=== PATIENT | female | born 1945 | race Caucasian/White ===

== ENCOUNTER 2018-06-10 05:46 | Inpatient (IN) | payer OTHER ==
[~2018-06-10] VITALS: Ht 152.4 cm; Wt 65.8 kg
[2018-06-10 05:48] VITALS: BP 144/61
[2018-06-10] MEDS ORDERED: ASPIRIN325 PO (06:03)
[2018-06-10] MEDS ORDERED: ZYRTEC10 M4 PO (06:04)
[2018-06-10] MEDS ORDERED: TRAZODONE HCL50 MG PO (06:04)
[2018-06-10] MEDS ORDERED: PROPRANOLOL 1010 MG PO (06:07)
[2018-06-10] MEDS ORDERED: SYNTHROID75 MCG PO (06:07)
[2018-06-10] MEDS ORDERED: PROZAC20 MG PO (06:08)
[2018-06-10] MEDS ORDERED: CLARITIN10 MG PO (06:08)
[2018-06-10] MEDS ORDERED: HYDROCODON-ACE1 EA12 PO (06:09)
[2018-06-10 06:14] LABS: HEMATOCRIT 30.9 % (37.0-47.0); HEMOGLOBIN 10.4 gm/dL (12.0-15.0); MCHC 33.7 g/dL (28.0-37.0); MCV 88.8 fL (80.0-100.0); RBC 3.48 mil/uL (4.20-5.00); WBC 7.8 thou/uL (4.0-11.0)
[2018-06-10 06:17] LABS: CALCIUM 9.2 mg/dL (8.5-10.1); CREATININE 0.6 mg/dL (0.6-1.0); POTASSIUM 3.8 mmol/L (3.5-5.1)
[2018-06-10 06:23] LABS: ALBUMIN 3.3 g/dL (3.4-5.0); TOTAL BILIRUBIN 0.5 mg/dL (<0.1-1.0); TOTAL PROTEIN 7.2 g/dL (6.4-8.2)
[2018-06-10 06:47] LABS: URINE CLARITY CLEAR; URINE COLOR YELLOW
[2018-06-10 06:48] LABS: URINE BILIRUBIN NEGATIVE (Negative); URINE BLOOD NEGATIVE (Negative); URINE GLUCOSE-RANDOM* NEGATIVE (Negative); URINE KETONES NEGATIVE (Negative); URINE LEUKOCYTES-REFLEX NEGATIVE (Negative); URINE NITRITE-REFLEX NEGATIVE (Negative); URINE PROTEIN (DIPSTICK) NEGATIVE (Negative); URINE UROBILINOGEN 0.2 E.U./dl (0.2-1.0)
[2018-06-10 09:09] VITALS: BP 125/54
[2018-06-10 09:59] VITALS: BP 141/76
[2018-06-10 10:32] VITALS: BP 124/53
--- NOTE | 2018-06-10 18:36 | NUR ---
ASSUMED CARE AT 1700, PATIENT CAME DOWN FROM 4E 423. REPORTS PAIN IS UNDER CONTROL. UP WITH 1 PERSON ASSIST WITH A WALKER. WALKED AROUND THE UNIT 1 TIME. MEDS GIVEN PER SCHEDULE. WILL CONTINUE TO ASSESS AND ASSIST WITH ADLs NEEDED.
--- NOTE | 2018-06-11 04:37 | NUR ---
PATIENT ALERT AND ORIENTED X4. UP WITH ONE ASSIST AND WALKER TO BATHROOM THROUGHOUT THE NIGHT. NPO SINCE [place] FOR MRI TODAY. SL TO RIGHT AC PATENT FOR FLUSH. MEDICATED FOR PAIN X1 AT TIME OF NOTE WITH RELIEF. RESTING QUIETLY AT TIME OF NOTE. WILL MONITOR.
[2018-06-11 07:55] VITALS: BP 123/65
--- NOTE | 2018-06-11 16:35 | NUR ---
dp faxed initial skilled referral to [facility], katelyn/admissions at facility is aware of incoming referral.
--- NOTE | 2018-06-11 16:36 | NUR ---
INITIAL ASSESSMENT: Received consult for discharge planning. MILY reviewed chart and spoke with nursing and attending physician. Pt was admitted from home due to intractable lower back pain. Pt had MRI of lumbar spine earlier today. Pt with L4-L5 disc bulge. Pt with hx of recent right KRISTIN. PT/OT evaluated pt. SW met with pt at bedside. Introduced role of SW. Pt is alert/orientated x 4. Pt reports she lives at home alone in her apt. Pt has 3 steps to enter her apt. There are 14 steps down to her basement. Pt's laundry and cat's litter box are down in the basement. Pt had recent righ KRISTIN at the [facility] on 05/[address] Timothy Reynoso. Pt was discharged home on 05/30 with orders for outpatient thearpy. Pt states she has gone to 2 outpatient therapy sessions prior to admission. Pt states she fell at home and has had extreme lower back pain. Pt went to the ER at [facility] several days prior to admission and was sent home. Pt states she is unable to return home alone at this time, and is interested in going to post-acute rehab. Lengthy discussion with pt regarding discharge disposition. SW discussed acute rehab v. SNF. SW provided pt with list of SNFs. Pt requests referral to be sent to [facility]. Pt would prefer SNF v. inpt acute rehab. Pt's sister has been to [facility] and [facility], so she is familiar with these two facilities if needed. Pt's PCP is Dr. Talia Lee at [facility]. personal financial planner faxed referral to [facility]. MILY notified and discussed case with [facility] liaison. SW is following to assist as needed with discharge planning.
--- NOTE | 2018-06-11 19:37 | NUR ---
ASSUMED CARE OF PATIENT AT 0715, PATIENT ALERT AND ORIENTED X 4. PATIENT UP WIH ASSIST X 1 WITH WALKER. PATIENT C/O PAIN WITH LOW BACK, 07/01, PATIENT REFUSED PAIN MEDICATION THIS SHIFT, WILL TAKE LATER ON THE NIGHTSHIFT. PAULINA HAS A RIGHT AC IV IN PLACE, FLUSHED WITH NS AND REMAINS PATENT. PAULINA NEW ORDER FOR LIDOCAINE PATCHE APPLIED TO RIGHT LOW BACK. THIS RN NOTIFIED DR FRANCO OF PATIENT WANTING TO TAKE PROZAC AND LEVOTHYROXINE TODAY INSTEAD OF STARTING TOMORROW, OK WITH DR FRANCO. PASSED ON TO THE NIGHTSHIFT THAT PATIENT WANTS PROZAC 60 MG INSTEAD OF 20MG, BRIGHT/RN WILL PASS ON TO THE DAYSHIFT NURSE. WILL CONTINUE MONITOR.
[2018-06-11 21:16] VITALS: BP 118/59
--- NOTE | 2018-06-12 05:55 | NUR ---
Pt A/OX4, up with AX1 RW/GB to bathroom. Voiding without any difficulties. C/o pain to lower back/right hip LOP 3/10 medicated with Hydrocodone with relief reported. Thigh high virgilio hose in place,no edema noted. Pillow placed between legs as an abductor. Fall precautions in place,call light/personal items within reach.
[2018-06-12 08:45] VITALS: BP 104/56
--- NOTE | 2018-06-12 10:42 | NUR ---
SW reviewed chart and spoke with nursing and attending physician. Pt is progressing towards goals for discharge. SW faxed face sheet to [facility] for review. [facility] is able to accept pt when she is medically stable. Discharge is anticipated for . corporate planner will fax clinical/therapy updates later today. MILY met with pt at bedside to provide update and notify of [facility] acceptance. Pt is aware and agreeable with discharge plan. MILY is following to assist as needed with discharge planning.
--- NOTE | 2018-06-12 16:37 | NUR ---
PATIENT CARE WAS ASSUMED AT 0715.PATIENT IS ALERT AND ORIENTED X4.COMPLAINS OF PAIN IN BACK AND HIP FROM PREVIOUS SURGERY 05/2018.PAIN MEDS ARE GIVEN PRN.IV IS INTACT AND SALINE LOCKED.PT WILL CALL IF SHE NEEDS ANY ASSISTANCE, SHE IS ABLE TO TRANSFER WITH WALKER WITH STANDBY ASSIST.CALL LIGHT,PHONE, AND PERSONAL BELONGINGS ARE WITHIN REACH.WILL CONTINUE TO MONITOR PATIENT.
[2018-06-12 17:37] VITALS: BP 136/72
--- NOTE | 2018-06-13 02:32 | NUR ---
Pt A/OX4,up with AX1/RW to bathroom. C/o pain to right hip/lower back with movement LOP 610 medicated with [place] 5/325 with partial relief reported. VSS.Voiding without problems.Resting quietly with eyes closed at this time. Will continue to monitor pt.Call light/personal items within reach.
[2018-06-13 08:06] VITALS: BP 115/59
--- NOTE | 2018-06-13 12:16 | NUR ---
SW reviewed chart and spoke with nursing and attending physician. Pt is progressing towards goals for discharge. Discharge to [facility] is anticipated for tomorrow. SW discussed with [facility] liaison, who confirms they will have a bed for pt tomorrow. SW met with pt at bedside to provide update. Pt is aware and agreeable with discharge plan. SW is following to assist as needed with discharge planning.
--- NOTE | 2018-06-13 17:51 | NUR ---
ASSUMED CARE OF PATIENT AT 0715, PATIENT ALERT AND ORIENTED X 4. PATIENT UP WITH WALKER WITH ASSIST X 1. PATIENT HAS RIGHT AC IV IN PLACE, FLUSHED WITH NORMAL SALINE AND REMAINS PATIENT. PATIENT HAS BEEN TAKING HYDROCODONE 1 TABLETS EVERY 4 HOURS TO KEEP PAIN LEVEL DOWN, PAIN STARTED AT 6/10, AND DOWN WITHOUT ACTIVITY TO 1/10. PATIENT MAY DISCHARGE TO FACILITY TOMORROW. WILL CONTINUE.
[2018-06-13 20:39] VITALS: BP 120/67
--- NOTE | 2018-06-14 04:59 | NUR ---
Pt A/OX4. Up with AX1/RW to the bathroom with c/o pain to lower back/right hip with movement LOP 10/29. Medicated with [place] as needed every 4 hours with partial relief reported.Voiding without problems,BS hypoactive stool softeners administered per EMAR.IV patent RAC.Resting with eyes closed at this time no distress noted.Call light/personal items within reach.
[2018-06-14 07:30] VITALS: BP 109/61
--- NOTE | 2018-06-14 07:30 | NUR ---
PATIENT CARE WAS ASSUMED AT 0715.PATIENT IS ALERT AND ORIENT X4.PATIENT HAS PAIN 8/10 ON PAIN SCALE.VITALS ARE STABLE.IV IS INTACT AND SALINE LOCKED.PT IS ABLE TO AMBULATE WITH STAND BY ASSIST, WITH WALKER.PT WILL BE GIVEN PAIN MEDS WITH MORNING MEDS WHEN AVAILABLE.CALL LIGHT,PHONE AND PERSONAL BELONGINGS ARE WITHIN REACH.WILL CONTINUE TO MONITOR.
--- NOTE | 2018-06-14 10:35 | NUR ---
DISCHARGE NOTE: MILY reviewed chart and spoke with nursing and attending physician. Pt is medically stable for discharge to [facility] today. SW discussed case with [facility] liaison, who confirms they are able to accept pt today. Wheelchair van scheduled for 1300 per SNF's arrangements. MILY met with pt and sister at bedside to discuss discharge plan and notify of discharge time. Both are agreeable with discharge plan. SW notified attending physician. Awaiting final discharge orders at this time. Discharge orders/summary will be faxed once available. Chart copy ordered. Nursing provided with number to call report. No additional SW needs identified at this time, but is available to assist should needs arise.
[2018-06-14] MEDS ORDERED: COLACE 100 MG100 MG PO (11:37)
[2018-06-14] MEDS ORDERED: PREDNISONE 20 M20 M1 PO (11:37)
[2018-06-14] MEDS ORDERED: ASPIRIN325 PO (11:37)
[2018-06-14] MEDS ORDERED: PROZAC 20 MG20 MG PO (11:37)
[2018-06-14] MEDS ORDERED: LIDOPATCH1 EACH TRANSDERM (11:37)
[2018-06-14] MEDS ORDERED: HYDROCODON-ACE1 EA12 PO (11:37)
[2018-06-14] MEDS ORDERED: MUCINEX600 MG PO (11:37)
[2018-06-14] MEDS ORDERED: AMBIEN 10 MG TA10 MG PO (11:37)
[2018-06-14] MEDS ORDERED: MILK OF MA2400 MG/10 PO (11:37)
[2018-06-14] MEDS ORDERED: BACLOFEN 10MG T10 MG PO (11:37)
--- NOTE | 2018-06-14 12:03 | NUR ---
DISCHARGE ORDERS RECEIVED. PATIENT DISCHARGING TO [facility]. CHART COPIED PER ENDOSCOPIC TECHNICIAN. ORDERS FAXED TO [facility]. ORDERS VERIFIED RECEIVED. [facility] TO TRANSPORT PATIENT, 1300 HOURS. SISTER KARELY NOTIFIED. UNIT RN NOTIFIED AND CONTACT NUMBER PROVIDED FOR REPORT. UNIT CM/SW AWARE.
--- NOTE | 2018-06-14 14:00 | NUR ---
PATIENT LEFT TO GO TO [facility]SKILL NURSING AT 1315.PATIENT WAS DRESSED.IV WAS TAKEN OUT, GAUZE WAS PLACED.TRANSPORTATION WAS GIVEN DISCHARGE PAPERWORK.PT LEFT VIA W/C IN A W/C VAN.REPORT WAS CALLED IN TO NURSE, WAS UNABLE TO SPEAK WITH SOMEONE,WAS TRANSFERED TO ADMISSION NURSE,MESSAGE WAS LEFT ON MACHINE FOR A CALL BACK WILL ATTEMPT TO CALL AGAIN TO GIVE REPORT.
== END 2018-06-14 13:15 | DRG 552 ==
LOC: ER 05:46 → SICU 08:06 → EROBS 08:06 → 4E 09:58 → SICU 17:30
PROVIDERS: Emergency Medicine; Nurse Practitioner Family; ADMIT Internal Medicine
DX: M54.16 Radiculopathy, lumbar region (principal); M43.16 Spondylolisthesis, lumbar region; M19.90 Unspecified osteoarthritis, unspecified site; F32.9 Major depressive disorder, single episode, unspecified; G25.0 Essential tremor; F41.9 Anxiety disorder, unspecified; Z60.2 Problems related to living alone; M62.84 Sarcopenia; G47.00 Insomnia, unspecified; K59.00 Constipation, unspecified; E03.9 Hypothyroidism, unspecified; Z96.641 Presence of right artificial hip joint; Z88.2 Allergy status to sulfonamides; Z88.6 Allergy status to analgesic agent; Z91.02 Food additives allergy status; Z79.82 Long term (current) use of aspirin; Z79.899 Other long term (current) drug therapy; Z47.89 Encounter for other orthopedic aftercare
CPT/HCPCS: 15002